=== PATIENT | male | born 1995 | race Hispanic/Latino ===

== ENCOUNTER 2025-04-27 17:38 | Emergency (ER) | payer OTHER ==
[2025-04-27 20:27] LABS: Glucose, Urine (Dipstick) Normal (Negative); Leukocyte Negative (Negative); Protein, Urine (Dipstick) Negative (Neg-Trace); Specific Gravity, Urine 1.010 (1.005-1.030)
[2025-04-27 20:41] LABS: Bacteria/HPF Rare-Few HPF (None Seen); CAUTI Indications for Culture Pelvic or flank pain; RBC/HPF None Seen HPF (0-3); Urine Culture Reflex No No; WBC/HPF None Seen HPF (0-3)
[2025-04-28 05:48] LABS: Chlam.trachomatis by PCR,Urine Not Detected (NotDetected); GC N.gonorrhoeae PCR,UrineVOID Not Detected (NotDetected)
== END 2025-04-27 21:05 ==
LOC: CSHERS 17:38
DX: N50.811 Right testicular pain (principal)
CPT/HCPCS: 76870; 81001; 87491; 87591